=== PATIENT | male | born 1960 | race Caucasian/White ===

== ENCOUNTER 2018-03-17 16:28 | Emergency (ER) | payer BC ==
--- NOTE | 2018-03-17 17:29 | EDM.PDOC ---
ED HPI GENERAL MEDICAL PROBLEM - General Chief Complaint: Back Pain or Injury Stated Complaint: ABSESS ON SPINE/NECK PUSHING ON SPINAL CORD Time Seen by Provider: 03/17/18 16:42 Source of Information: Reports: Patient, Other (Dr Zazueta) History Limitations: Reports: No Limitations - History of Present Illness INITIAL COMMENTS - FREE TEXT/NARRATIVE: This man was sent over from clinic by Dr Cannon because of spinal epidural abscess. He was having low back pain and MRI today showed evidence of SEA. Aside from severe low back pain he is not having any lower extremity weakness. Lower Back Pain Score (Numeric/FACES): 6 - Related Data Allergies Allergy/AdvReac Type Severity Reaction Status Date / Time No Known Allergies Allergy Verified 03/17/18 16:40 Home Meds: Home Meds NK [No Known Home Meds] 03/17/18 [History] Past Medical History HEENT History: Reports: None Musculoskeletal History: Reports: Back Pain, Chronic, Other (See Below) Other Musculoskeletal History: back pain uses walker, and wheel chair when out and about january 2018 Neurological History: Reports: Concussion Oncologic (Cancer) History: Reports: Other (See Below) Other Oncologic History: hemolytic anemia history - Infectious Disease History Infectious Disease History: Reports: C-Difficile, Measles, Mumps - Past Surgical History Head Surgeries/Procedures: Reports: None HEENT Surgical History: Reports: Adenoidectomy, Tonsillectomy Neurological Surgical History: Reports: Other (See Below) Other Neurological Surgeries/Procedures: back pain with abcess Musculoskeletal Surgical History: Reports: None Oncologic Surgical History: Reports: Bone Marrow Aspiration Social & Family History - Family History Family Medical History: Noncontributory - Tobacco Use Smoking Status *Q: Former Smoker Years of Tobacco use: 30 Packs/Tins Daily: 1 Used Tobacco, but Quit: Yes Month/Year Tobacco Last Used: july Second Hand Smoke Exposure: Yes - Caffeine Use Caffeine Use: Reports: Coffee, Soda, Tea - Recreational Drug Use Recreational Drug Use: No ED ROS GENERAL - Review of Systems Review Of Systems: ROS reveals no pertinent complaints other than HPI. ED EXAM,LOWER BACK PAIN/INJURY - Physical Exam Exam: See Below Exam Limited By: No Limitations General Appearance: Alert, Other (Chronicall ill appearing but INAD sitting in wheelchair) Eye Exam: Bilateral Eye: Normal Inspection Head: Atraumatic Neck: Normal Inspection Respiratory/Chest: Lungs Clear Cardiovascular: Regular Rate, Rhythm GI/Abdominal: Non-Tender Extremities: Normal Inspection Neurological: Alert, Normal Mood/Affect, No Motor/Sensory Deficits (examined in wheelchair) Skin Exam: Warm, Dry, Pallor Course - Vital Signs Last Recorded V/S: Last Vital Signs Temp 36.5 C 03/17/18 16:59 Pulse 109 H 03/17/18 16:59 Resp 16 03/17/18 16:37 BP 135/94 H 03/17/18 16:59 Pulse Ox 97 03/17/18 16:59 - Radiology Interpretation Free Text/Narrative:: [facility] - Re-Assessments/Exams Free Text/Narrative Re-Assessment/Exam: 03/17/18 17:[address] Hickman at [facility]. Departure - Departure Time of Disposition: 17:33 Disposition: DC/Tfer to Acute Hospital 02 Condition: Serious Clinical Impression: Spinal epidural abscess - Discharge Information Referrals: Jose Crouch TYPING SECRETARY [Primary Care Provider] - Forms: ED Department Discharge Additional Instructions: Go straight to [facility] for admission.
== END 2018-03-17 17:43 ==
LOC: JP.ED 16:28
DX: G06.1 Intraspinal abscess and granuloma (principal); Z87.891 Personal history of nicotine dependence
CPT/HCPCS: 99284

== ENCOUNTER 2018-11-11 06:53 | Day surgery (SDC) | payer BC, MEDICAID ==
[~2018-11-11 06:53] MED LIST: Bupivacaine 0.5% 50 ML MDV ONE; Lidocaine 1% with EPINEPHrine 1:100,000 50 ML MDV ONE
[2018-11-11] MEDS ORDERED: Propofol 200 MG/20 ML SDV ONE ×4 (07:23→09:15)
[2018-11-11] MEDS ORDERED: fentaNYL 100 MCG/2 ML SDV ONE (07:23)
[2018-11-11] MEDS ORDERED: Midazolam 1 MG/ML 2 ML SDV ONE (07:23)
[2018-11-11] MEDS ORDERED: Dextrose 5%-Lactated Ringers 1,000 ML IV SCH (08:15)
[2018-11-11] MEDS ORDERED: ceFAZolin 2 GM in Sodium Chloride 0.9% 100 ML IV ONE (09:00)
[2018-11-11] MEDS ORDERED: ceFAZolin 2 GM in Premix Bag 1 BAG IV ONE (09:00)
[2018-11-11] MEDS ORDERED: Acetaminophen/HYDROcodone 325-5 MG Tab PO PRN (10:09)
--- NOTE | 2018-11-11 14:19 | OR ---
DATE OF PROCEDURE: 11/11/2018 PREOPERATIVE DIAGNOSIS: Reducible right inguinal hernia. POSTOPERATIVE DIAGNOSIS: Reducible indirect right inguinal hernia. PROCEDURE: Repair of reducible indirect right inguinal hernia with an extra-large PerFix mesh plug and patch. ANESTHESIA: IV anesthesia with monitored anesthesia care. INDICATION: This 58-year-old white male has been aware of a reducible right groin mass for several months. He denies predisposing factors for hernia formation. He has multiple medical problems and is taken to the operating room for repair of his reducible right inguinal hernia. I counseled him for surgery including risks and alternatives and he gave his informed consent to proceed. DESCRIPTION OF PROCEDURE: After adequate IV anesthesia was obtained, the patient's lower abdomen, groin, and genitalia were prepped and draped in usual sterile fashion. Time-out was held. Lidocaine 1% with epinephrine in a 50:50 mix with 0.5% Marcaine was infiltrated about the right groin. A right groin incision was made 2 cm superior and medial to the inguinal ligament. This was carried deep using Bovie cautery to the external oblique. The external oblique was opened parallel to course of its fibers from the internal to external ring. The spermatic cord was mobilized and a Jacob drain placed about it. There was no evidence of a direct inguinal hernia. The floor appeared intact. The cremasteric fibers were divided longitudinally to reveal a large lipoma and the hernia sac. The sac was dissected free back to the peritoneal reflection and reduced back in the abdominal cavity. The lipoma was removed and discarded. An extra-large PerFix mesh plug manufactured by [employer] was obtained. This was placed down underneath the fascia through the hernia defect and was anchored to the underside of the fascia with horizontal mattress stitches of 2-0 Vicryl. The onlay patch was obtained, cut to appropriate length, and anchored to itself around the spermatic cord with a horizontal mattress stitch of 2-0 Vicryl. It was placed over the inguinal floor. Additional local anesthesia was introduced into the area. The ilioinguinal nerve was divided. The external oblique was then closed over the spermatic cord and mesh with a running stitch of 2-0 Vicryl. Interrupted 2-0 Vicryl stitches were placed to approximate the Chase's fascia, 4-0 Vicryl using a subcuticular stitch was placed to approximate the skin. Dermabond was applied. He tolerated the procedure well and was brought to recovery room in good condition. Win Archibald MD /[id number]
== END 2018-11-11 11:40 | disposition home or self-care (01) ==
LOC: JP.SDS 06:53
PROVIDERS: ATTEND Surgery
DX: K40.90 Unilateral inguinal hernia, without obstruction or gangrene, not specified as recurrent (principal); D17.6 Benign lipomatous neoplasm of spermatic cord; I10 Essential (primary) hypertension; K21.9 Gastro-esophageal reflux disease without esophagitis; E66.01 Morbid (severe) obesity due to excess calories; Z68.33 Body mass index [BMI] 33.0-33.9, adult; Z88.8 Allergy status to other drugs, medicaments and biological substances
CPT/HCPCS: 49505; A9270; C1781; J2250; J2704; J3010; J3490; J7042

== ENCOUNTER 2019-03-02 12:48 | Day surgery (SDC) | payer BC, MEDICAID ==
[2019-03-02] MEDS ORDERED: Sodium Chloride 0.9% 1,000 ML IV SCH (13:15)
[2019-03-02] MEDS ORDERED: ceFAZolin 2 GM in Premix Bag 1 BAG IV ONE (13:30)
[2019-03-02] MEDS ORDERED: Midazolam 1 MG/ML 2 ML SDV ONE (14:35)
[2019-03-02] MEDS ORDERED: fentaNYL 100 MCG/2 ML SDV ONE (14:35)
[2019-03-02] MEDS ORDERED: Propofol 200 MG/20 ML SDV ONE ×2 (14:35→14:49)
[2019-03-02] MEDS ORDERED: Bupivacaine 0.5% 50 ML MDV ONE (14:43)
[2019-03-02] MEDS ORDERED: Lidocaine 1% with EPINEPHrine 1:100,000 50 ML MDV ONE (14:43)
[2019-03-02] MEDS ORDERED: Bacitracin Oint 1 GM U/D Packet ONE (14:53)
--- NOTE | 2019-03-02 15:25 | OR ---
DATE OF PROCEDURE: 03/02/2019 SURGEON: Fito Islas MD PROCEDURE: Incision and drainage of left hip abscess. COMPLICATION: None. STATION ENGINEER MAIN LINE: None. FINDINGS: Abscess extending 10.5 cm, left hip. ANESTHESIA: MAC/local. RISKS: Risks, benefits, alternatives, and limitations including, but not limited to infection, bleeding, requirement for reoperation, sepsis, and other risks not listed here were explained to the patient, and they wished to proceed. PROCEDURE IN DETAIL: The patient was placed in right lateral decubitus position. The left hip was prepped and draped. The area of denuded skin was anesthetized with lidocaine and opened with a 15 blade. Purulent material was noted. This was then cultured and over the course of the next several minutes, suctioned and irrigated multiple times. Eventually, the irrigant was clear. A counter incision was made approximately 3 cm medial after anesthetizing with lidocaine. A jacquie was created in the skin. A 7 round drain was placed within the wound. The dressings were applied. Vicryl suture was used for the drain. The patient tolerated the procedure well. Fito Islas MD /[id number]
== END 2019-03-02 16:34 | disposition home or self-care (01) ==
LOC: JP.SDS 12:48
PROVIDERS: ATTEND Surgery
DX: L02.416 Cutaneous abscess of left lower limb (principal); I10 Essential (primary) hypertension; K22.70 Barrett's esophagus without dysplasia; E11.9 Type 2 diabetes mellitus without complications; E66.9 Obesity, unspecified; Z68.34 Body mass index [BMI] 34.0-34.9, adult; I82.409 Acute embolism and thrombosis of unspecified deep veins of unspecified lower extremity; Z87.2 Personal history of diseases of the skin and subcutaneous tissue; Z88.8 Allergy status to other drugs, medicaments and biological substances; Z79.01 Long term (current) use of anticoagulants; Z79.899 Other long term (current) drug therapy
CPT/HCPCS: 10060; 87070; 87075; 87077; 87186; 87205; J0690; J2250; J2704; J3010; J3490; J7030

== ENCOUNTER 2019-05-19 06:27 | Day surgery (SDC) | payer OTHER ==
[2019-05-19] MEDS ORDERED: Lactated Ringers 1,000 ML IV SCH (07:00)
[2019-05-19] MEDS ORDERED: Propofol 200 MG/20 ML SDV ONE ×2 (07:12→07:58)
[2019-05-19] MEDS ORDERED: Midazolam 1 MG/ML 2 ML SDV ONE (07:12)
[2019-05-19] MEDS ORDERED: fentaNYL 100 MCG/2 ML SDV ONE (07:12)
--- NOTE | 2019-05-19 13:45 | OR ---
DATE OF PROCEDURE: 05/19/2019 PREOPERATIVE DIAGNOSES: History of Mena's esophagus, colon cancer screening. POSTOPERATIVE DIAGNOSES: Hiatal hernia, history of Mena's esophagus, gastroesophageal reflux disease, colonic diverticulosis. PROCEDURE PERFORMED: Esophagogastroduodenoscopy with biopsy of gastroesophageal junction. Colonoscopy to the cecum. SURGEON: Win Archibald MD ANESTHESIA: IV anesthesia with monitored anesthesia care. INDICATION: This 59-year-old white male was referred for upper and lower endoscopy by his [facility] physician. Indication for the upper endoscopy is history of Mena's esophagus. Indication for colonoscopy is screening. I counseled him for upper and lower endoscopy with possible biopsy and/or polypectomy, including the risks and alternatives, and he gave his informed consent to proceed. DESCRIPTION OF PROCEDURE: The patient was placed in the left lateral decubitus position. IV anesthesia was administered by the Anesthesia Service. Time-out was held. The flexible video Olympus upper endoscope was passed through his mouth, down the esophagus, and into his stomach. The scope was easily passed through the pylorus, into the duodenum, reaching its third portion. The scope was then slowly withdrawn, examining the mucosa throughout. The duodenal mucosa appeared unremarkable. The scope was brought up through the pylorus. The antrum appeared unremarkable. The scope was retroflexed. The proximal stomach appeared unremarkable. The scope was straightened and brought up through the GE junction. Here, we saw a small hiatal hernia. The Z-line was not straight, consistent with gastroesophageal reflux disease. We obtained multiple totalling at least 6 biopsies of the gastroesophageal junction. There was also an island of gastric mucosa proximal to the Z-line. The scope was then brought up through the remainder of the esophagus, which otherwise appeared unremarkable, and it was removed. Next, a rectal exam was performed. This was unremarkable, except for a large smooth prostate. The flexible video Olympus colonoscope was introduced through his anus, up his rectum, out his colon, all the way to the cecum. En route, we saw a few scattered left-sided diverticula. There was no bleeding or inflammation associated with any of them. Once the cecum was reached, the scope was slowly withdrawn examining the mucosa throughout. No other mucosal abnormalities were noted. No neoplastic lesions were seen. The scope was retroflexed in the rectum with the distal rectum appearing unremarkable. The scope was straightened and removed. He tolerated the procedure well. Win Archibald MD /[id number]
== END 2019-05-19 09:27 | disposition home or self-care (01) ==
LOC: JP.SDS 06:27
PROVIDERS: ATTEND Surgery
DX: Z12.11 Encounter for screening for malignant neoplasm of colon (principal); K57.30 Diverticulosis of large intestine without perforation or abscess without bleeding; K22.70 Barrett's esophagus without dysplasia; K21.0 Gastro-esophageal reflux disease with esophagitis; K44.9 Diaphragmatic hernia without obstruction or gangrene; E11.9 Type 2 diabetes mellitus without complications; E66.9 Obesity, unspecified; G47.33 Obstructive sleep apnea (adult) (pediatric); M19.90 Unspecified osteoarthritis, unspecified site; Z88.8 Allergy status to other drugs, medicaments and biological substances; Z86.711 Personal history of pulmonary embolism; Z86.718 Personal history of other venous thrombosis and embolism; Z68.36 Body mass index [BMI] 36.0-36.9, adult
CPT/HCPCS: J2250; J2704; J3010; J7120

== ENCOUNTER 2020-01-18 07:00 | Day surgery (SDC) | payer OTHER ==
[~2020-01-18 07:00] MED LIST changes: +Lidocaine 2% Jelly 30 ML Tube ONE
[2020-01-18] MEDS ORDERED: Propofol 200 MG/20 ML SDV ONE (07:45)
[2020-01-18] MEDS ORDERED: fentaNYL 100 MCG/2 ML SDV ONE (07:45)
[2020-01-18] MEDS ORDERED: Midazolam 1 MG/ML 2 ML SDV ONE (07:45)
[2020-01-18] MEDS ORDERED: Sodium Chloride 0.9% 1,000 ML IV SCH (08:00)
[2020-01-18] MEDS ORDERED: ceFAZolin 2 GM in Premix Bag 1 BAG IV ONE (08:30)
--- NOTE | 2020-01-18 10:50 | OR ---
DATE OF PROCEDURE: 01/18/2020 SURGEON: Fito Islas MD PROCEDURE: 1. Debridement, left hip, deep to the fascia. 2. Wound VAC placement. COMPLICATIONS: None. BARTACKER: None. PREOPERATIVE DIAGNOSIS: Chronic wound. POSTOPERATIVE DIAGNOSIS: Chronic wound. RISKS: Risks, benefits, alternatives, and limitations including, but not limited to, infection, bleeding, and chronic wound, chronic pain, requirement for reoperation, and other risks not listed here were explained to the patient, who wished to proceed. PROCEDURE IN DETAIL: The patient was placed in supine position. The left hip wound had been marked by the patient preoperatively. This was excised using a 15 blade and then carried down with electrocautery. This wound itself was deeper than 15 cm. This was enlarged slightly and during this process was also cultured. Once debridement was completed with electrocautery and 15 blade, we checked for bleeding, minimal was noted, and electrocautery was used to address this. The wound VAC was then placed next, foam sponges placed within the wound itself, cut to size and covered with film, track pad, and applied to suction. The patient tolerated the procedure well. Fito Islas MD /[id number]
== END 2020-01-18 10:45 | disposition home or self-care (01) ==
LOC: JP.SDS 07:00
PROVIDERS: ATTEND Surgery
DX: S71.002A Unspecified open wound, left hip, initial encounter (principal); B95.62 Methicillin resistant Staphylococcus aureus infection as the cause of diseases classified elsewhere; I10 Essential (primary) hypertension; X58.XXXA Exposure to other specified factors, initial encounter
CPT/HCPCS: 11043; 36415; 80048; 85027; 87070; 87075; 87077; 87186; 87205; J0690; J2250; J2704; J3010; J3490; J7030

== ENCOUNTER 2023-03-30 03:53 | Emergency (ER) | payer OTHER ==
[2023-03-30 04:53] LABS: BASOPHILS ABSOLUTE AUTO 0.04 K/uL (0.00-0.10); BASOPHILS PERCENT AUTO 0.5 % (0.1-1.3); EOSINOPHILS ABSOLUTE AUTO 0.28 K/uL (0.00-0.40); EOSINOPHILS PERCENT AUTO 3.8 % (0.0-5.4); IMMATURE GRAN PERCENT AUTO 0.3 % (0.0-0.7); LYMPHOCYTES ABSOLUTE AUTO 2.01 K/uL (0.8-3.3); LYMPHOCYTES PERCENT AUTO 27.4 % (11.4-47.7); MEAN CORPUSCULAR HEMOGLOBIN 31.5 pg (31.6-35.5); MEAN CORPUSCULAR HGB CONC 34.2 g/dL (31.6-35.5); MEAN CORPUSCULAR VOLUME 92.3 fL (81.4-99.0); MONOCYTES ABSOLUTE AUTO 0.42 K/uL (0.20-0.90); MONOCYTES PERCENT AUTO 5.7 % (3.3-12.6); NEUTROPHILS ABSOLUTE AUTO 4.57 K/uL (1.0-7.6); NEUTROPHILS PERCENT AUTO 62.3 % (40.0-78.1); PLATELET COUNT,PLT 207 K/uL (130-375); RED BLOOD CELL COUNT 5.74 M/uL (4.14-5.76); WHITE BLOOD CELL COUNT,WBC 7.3 K/uL (3.2-11.0)
[2023-03-30] MEDS: Albuterol/Ipratropium 3.0-0.5 MG/3 ML Neb Soln NEB ONE (04:55)
[2023-03-30 05:02] LABS: HEMOGLOBIN 18.1 g/dL (12.9-16.9); IMMATURE GRAN ABSOLUTE AUTO 0.02 K/uL (0.00-0.23)
[2023-03-30 05:08] LABS: A/G RATIO 1.3 (1.2-2.2); ALANINE AMINOTRANSFERASE,ALT 39 U/L (12-78); ALBUMIN 4.2 g/dL (3.4-5.0); ALKALINE PHOSPHATASE 71 U/L (46-116); ASPARTATE AMNIOTRANSFERASE,AST 23 U/L (15-37); BILIRUBIN TOTAL 0.6 mg/dL (0.2-1.0); BLOOD UREA NITROGEN,BUN 22 mg/dL (7-18); C-REACTIVE PROTEIN 0.21 mg/dL (0.0-0.3); CALCIUM 8.9 mg/dL (8.5-10.1); CARBON DIOXIDE,CO2 30 mmol/L (21-32); CHLORIDE,CL 98 mmol/L (100-108); CREATININE 1.5 mg/dL (0.8-1.3); ESTIMATED GFR 53 mL/min (>60); GLUCOSE RANDOM 109 mg/dL (74-106); PROTEIN TOTAL,TP 7.5 g/dL (6.4-8.2); SODIUM,NA 139 mmol/L (140-148)
[2023-03-30] MEDS: Potassium Chloride 20 MEQ Tab.ER PO ONE (05:26)
== END 2023-03-30 05:37 | disposition home or self-care (01) ==
LOC: JP.ED 03:53
DX: J44.1 Chronic obstructive pulmonary disease with (acute) exacerbation (principal); E87.6 Hypokalemia; I10 Essential (primary) hypertension; K21.9 Gastro-esophageal reflux disease without esophagitis; E66.9 Obesity, unspecified; F17.210 Nicotine dependence, cigarettes, uncomplicated; Z88.8 Allergy status to other drugs, medicaments and biological substances; Z79.899 Other long term (current) drug therapy; Z86.718 Personal history of other venous thrombosis and embolism; Z86.711 Personal history of pulmonary embolism
CPT/HCPCS: 36415; 71046; 80053; 85025; 86140; 94640; 99285; A9270; J7620

== ENCOUNTER 2024-01-25 13:52 | Emergency (ER) | payer OTHER | END 2024-01-25 14:56 | disposition home or self-care (01) | LOC: JP.ED 13:52 | DX: M10.9 Gout, unspecified (principal); I10 Essential (primary) hypertension; J45.909 Unspecified asthma, uncomplicated; K21.9 Gastro-esophageal reflux disease without esophagitis; E66.9 Obesity, unspecified; Z79.899 Other long term (current) drug therapy; Z88.8 Allergy status to other drugs, medicaments and biological substances; Z91.09 Other allergy status, other than to drugs and biological substances | CPT/HCPCS: 99283 ==

== ENCOUNTER 2024-03-13 04:50 | Emergency (ER) | payer OTHER ==
[2024-03-13] MEDS: Albuterol/Ipratropium 3.0-0.5 MG/3 ML Neb Soln NEB ONE (05:11)
== END 2024-03-13 05:33 | disposition home or self-care (01) ==
LOC: JP.ED 04:50
DX: J44.1 Chronic obstructive pulmonary disease with (acute) exacerbation (principal); J45.21 Mild intermittent asthma with (acute) exacerbation; I10 Essential (primary) hypertension; K21.9 Gastro-esophageal reflux disease without esophagitis; E66.9 Obesity, unspecified; F17.210 Nicotine dependence, cigarettes, uncomplicated; Z79.899 Other long term (current) drug therapy; Z88.8 Allergy status to other drugs, medicaments and biological substances; Z91.09 Other allergy status, other than to drugs and biological substances; Z68.41 Body mass index [BMI] 40.0-44.9, adult
CPT/HCPCS: 94640; 99284; J7620